=== PATIENT | male | born 1970 | race Caucasian/White ===

== ENCOUNTER 2017-11-17 07:52 | Day surgery (SDC) | payer MEDICAID ==
[2017-11-13 08:15] VITALS: BMI 27.3
[2017-11-17] MEDS ORDERED: Midazolam 2 MG/2 ML VIAL ONE (09:41)
[2017-11-17] MEDS ORDERED: Absorbable Gelatin Sponge Size 12-7 ONE (10:16)
--- NOTE | 2017-11-17 10:28 | CP.SDSHP ---
Same Day Surgery H & P - History Proposed Procedure: US guided renal biopsy Pre-Op Diagnosis: Proteinuria - Allergies Allergies: Allergies No Known Allergies Allergy (Verified 04/01/16 11:34) - Physical Exam Mental Status: Alert & Oriented x3 Neuro: WNL Heart: WNL Lungs: WNL GI: WNL - Impression Impression: Pt with proteinuria referred for biopsy of kidney. PLan US guided core biopsy of left kidney. Informed consent obtained. Pt. Evaluated Today:Candidate for Anesthesia & Procedure: Yes (ASA 3 Malampati 3) - Date & Time Date: 11/17/17 Time: 10:00 Short Stay Discharge - Short Stay Discharge Admitting Diagnosis/Reason for Visit: CT BIOPSY
--- NOTE | 2017-11-17 10:29 | PCM.SURG1 ---
Surgeon's Initial Post Op Note - Surgeon's Notes Surgeon: Jameel Khan MD Network Control Technician: NONE Type of Anesthesia: Local Pre-Operative Diagnosis: Proteinuria Operative Findings: US showed unremarkable left kidney. Post-Operative Diagnosis: Proteinuria Operation Performed: US guided left renal biopsy. Three 18-g core specimen obtain. Biopsy tract embolized with gelfoam. Specimen/Specimens Removed: 18 gauge core x 3 Estimated Blood Loss: EBL {In ML}: 2 Blood Products Given: N/A Drains Used: No Drains Post-Op Condition: Fair Date of Surgery/Procedure: 11/17/17 Time of Surgery/Procedure: 10:25
--- NOTE | 2017-11-17 12:53 | US ---
PROCEDURE: Date of procedure: 11/17/2017 Procedure: Ultrasound-guided left renal biopsy, CPT 83614 Ultrasound guidance for biopsy, [address]331 Medication: 8 cc 2% Lidocaine, patient received IV sedation by the anesthesiologist along with physiologic monitoring. HISTORY: Proteinuria TECHNIQUE: Following informed consent and procedure time-out, the patient was placed prone on the interventional table and a limited ultrasound showed slightly echogenic left kidney consistent with medical renal disease. There is no hydronephrosis or mass. The patient left back was prepped and draped in the usual sterile fashion. After patient sedated by the anesthesiologist and the skin anesthetized with lidocaine, an 18 gauge core needle was advanced percutaneously towards the lower pole cortex. Upon confirmation of needle position, three-18 gauge core specimens were obtained and sent for routine pathology. The biopsy tract was then embolized with Gelfoam. A post biopsy ultrasound showed no hematoma. There were no immediate complications. IMPRESSION: Ultrasound-guided left renal biopsy.
== END 2017-11-17 11:50 | disposition home or self-care (01) ==
LOC: C.SPRAD 07:52
PROVIDERS: ATTEND Radiology Vascular & Interventional Radiology
DX: N26.9 Renal sclerosis, unspecified (principal); R80.9 Proteinuria, unspecified
CPT/HCPCS: 50200; 76942; 88300; 99156; J2250; J3010